=== PATIENT | female | born 1980 | race Caucasian/White ===

== ENCOUNTER 2016-11-11 15:04 | Emergency (ER) | payer OTHER | END 2016-11-11 16:35 | disposition home or self-care (01) | LOC: ER1 15:04 | DX: J11.1 Influenza due to unidentified influenza virus with other respiratory manifestations (principal); F17.210 Nicotine dependence, cigarettes, uncomplicated; Z88.0 Allergy status to penicillin | CPT/HCPCS: 87081; 87880; 99283 ==

== ENCOUNTER 2016-12-10 14:53 | Emergency (ER) | payer OTHER | END 2016-12-10 15:51 | disposition home or self-care (01) | LOC: ER1 14:53 | DX: L03.113 Cellulitis of right upper limb (principal); F17.210 Nicotine dependence, cigarettes, uncomplicated; Z88.0 Allergy status to penicillin | CPT/HCPCS: 99283 ==

== ENCOUNTER 2016-12-11 19:31 | Emergency (ER) | payer OTHER | END 2016-12-11 20:04 | disposition home or self-care (01) | LOC: ER1 19:31 | DX: L03.113 Cellulitis of right upper limb (principal); Z88.0 Allergy status to penicillin | CPT/HCPCS: 99283 ==

== ENCOUNTER 2017-02-04 13:31 | Emergency (ER) | payer OTHER | END 2017-02-04 14:00 | disposition home or self-care (01) | LOC: ER1 13:31 | DX: S50.361A Insect bite (nonvenomous) of right elbow, initial encounter (principal); L03.113 Cellulitis of right upper limb; F17.210 Nicotine dependence, cigarettes, uncomplicated; Z88.0 Allergy status to penicillin; W57.XXXA Bitten or stung by nonvenomous insect and other nonvenomous arthropods, initial encounter | CPT/HCPCS: 99281 ==

== ENCOUNTER → 2020-10-12 | Outpatient (CLI) | payer OTHER ==
[2020-10-12 17:05] LABS: HEMOGLOBIN 14.5 gm/dl (12.3-15.3); RED BLOOD COUNT 4.75 M/UL (4.00-5.10); WHITE BLOOD COUNT 12.3 K/UL (4.5-11.0)
[2020-10-12 17:44] LABS: BUN/CREATININE RATIO 11 (0-10)
== END ==
LOC: LAB 16:39
PROVIDERS: Physician Assistant Medical
DX: R00.2 Palpitations (principal)
CPT/HCPCS: 36415; 80053; 84443; 85027

== ENCOUNTER → 2020-11-14 | Outpatient (CLI) | payer OTHER | LOC: HEART 5 09:30 | DX: R07.9 Chest pain, unspecified (principal); I08.1 Rheumatic disorders of both mitral and tricuspid valves; R94.39 Abnormal result of other cardiovascular function study | CPT/HCPCS: 93306 ==

== ENCOUNTER → 2021-01-05 | Outpatient (CLI) | payer OTHER ==
[2021-01-05 14:06] LABS: HEMOGLOBIN 14.4 gm/dl (12.3-15.3); RED BLOOD COUNT 4.67 M/UL (4.00-5.10); WHITE BLOOD COUNT 10.7 K/UL (4.5-11.0)
[2021-01-05 14:40] LABS: BUN/CREATININE RATIO 13 (0-10)
== END ==
LOC: LAB 13:05
PROVIDERS: Internal Medicine Interventional Cardiology
DX: R07.9 Chest pain, unspecified (principal); R00.2 Palpitations
CPT/HCPCS: 80048; 85025; 85610; 85730; 93005

== ENCOUNTER → 2022-04-10 | Outpatient (CLI) | payer OTHER | LOC: RAD 13:11 | DX: R05.9 Cough, unspecified (principal) | CPT/HCPCS: 71046 ==